=== PATIENT | male | born 1965 | race African-American/Black ===

== ENCOUNTER 2020-06-03 21:39 | Emergency (ER) | payer OTHER ==
[~2020-06-03] VITALS: Ht 190.5 cm; Wt 112.0 kg
[2020-06-03 22:06] VITALS: BP 160/73
== END 2020-06-04 00:18 | disposition home or self-care (01) ==
LOC: ER 21:39
DX: S46.911A Strain of unspecified muscle, fascia and tendon at shoulder and upper arm level, right arm, initial encounter (principal); E11.9 Type 2 diabetes mellitus without complications; I10 Essential (primary) hypertension; X58.XXXA Exposure to other specified factors, initial encounter; Y93.02 Activity, running; Y92.9 Unspecified place or not applicable
CPT/HCPCS: 73030; 99283